=== PATIENT | female | born 1980 | race Caucasian/White ===

== ENCOUNTER 2019-01-18 19:20 | Emergency (ER) | payer MEDICAID ==
[~2019-01-18] VITALS: Ht 157.5 cm; Wt 105.3 kg
[2019-01-18 19:46] VITALS: Ht 157.5 cm; Wt 105.3 kg
[2019-01-18 23:05] VITALS: BP 117/68
== END 2019-01-18 23:05 | disposition home or self-care (01) ==
LOC: ED 19:20
DX: K21.9 Gastro-esophageal reflux disease without esophagitis (principal)
CPT/HCPCS: Q0162